=== PATIENT | male | born 1940 | race Two or more races ===

== ENCOUNTER 2017-09-01 10:40 | Emergency (ER) | payer OTHER ==
[~2017-09-01] VITALS: Ht 165.1 cm; Wt 83.5 kg
[2017-09-01 11:09] VITALS: BP 114/76
[2017-09-01] MEDS ORDERED: TETANUS-DIPTH-ACEL PERTUSSIS 0.5ML SYRG IM ONE (11:30)
== END 2017-09-01 11:38 | disposition home or self-care (01) ==
LOC: ER 10:40
DX: S91.331A Puncture wound without foreign body, right foot, initial encounter (principal); I10 Essential (primary) hypertension; Z23 Encounter for immunization; W21.31XA Struck by shoe cleats, initial encounter; Y93.01 Activity, walking, marching and hiking; Y99.8 Other external cause status; Y92.89 Other specified places as the place of occurrence of the external cause; Z88.6 Allergy status to analgesic agent
CPT/HCPCS: 90471; 90715